=== PATIENT | male | born 1960 | race American Indian/Alaskan Native ===

== ENCOUNTER 2016-06-16 12:01 | Emergency (ER) | payer SELFPAY ==
[2016-06-16 12:35] VITALS: BP 122/77
--- NOTE | 2016-06-16 13:02 | Emergency Department Report ---
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 Denies any penile discharge no dysuria. Denies any fever or chills. He has been using [id number] ball medicine as well as alcohol in 2 days without any resolution. He also complains of left side of neck radiating to his left shoulder and into his left elbow times one month. Patient is currently on no medications he has no past medical history no known drug allergies. Has no primary care doctor - Exam Vital Signs: Vital Signs 06/16/16 12:23 Temperature 98.5 F Pulse Rate 91 H Respiratory 16 Rate Blood Pressure 122/77 O2 Sat by Pulse 95 Oximetry Physical Exam: Patient's alert and oriented 3. No acute distress. There is no tenderness of the left arm. Full range of motion. deferred MSE screening note: Focused history and physical exam performed. Due to findings the following was ordered: Patient will be evaluated by the main ER ED Disposition for MSE Condition: Stable
== END 2016-06-16 22:25 | disposition left against medical advice (07) ==
LOC: ED 12:01
DX: N49.2 Inflammatory disorders of scrotum (principal); M54.2 Cervicalgia; R20.8 Other disturbances of skin sensation; Z53.21 Procedure and treatment not carried out due to patient leaving prior to being seen by health care provider